=== PATIENT | male | born 1965 | race Caucasian/White ===

== ENCOUNTER 2017-04-09 11:19 | Emergency (ER) | payer MEDICAID ==
[~2017-04-09] VITALS: Ht 170.2 cm; Wt 68.9 kg
[2017-04-09] MEDS ORDERED: LIDOCAINE HCL 1% 20 ML VIAL TP ONE (11:30)
[2017-04-09] MEDS ORDERED: NEOMY/BACITRA/POLYMYXIN B OINT UD PACKET TP ONE ×2 (11:30→11:46)
[2017-04-09] MEDS ORDERED: TDAP DIPH,PERTUSS,TET VAC/PF 0.5 ML DISP.SYRIN IM ONE ×2 (11:30→11:47)
[2017-04-09] MEDS ORDERED: HYDROMORPHONE 1 MG/1 ML DISP.SYRIN IM ONE (11:30)
[2017-04-09] MEDS ORDERED: ONDANSETRON ODT 4 MG TAB.RAPDIS SL ONE (11:30)
[2017-04-09] MEDS ORDERED: LIDOCAINE HCL 1% 20 ML VIAL ONE (11:46)
[2017-04-09] MEDS ORDERED: HYDROMORPHONE 2 MG/1 ML DISP.SYRIN ONE (11:47)
[2017-04-09] MEDS ORDERED: ONDANSETRON ODT 4 MG TAB.RAPDIS ONE (11:48)
[2017-04-09] MEDS ORDERED: CEFAZOLIN 2 G in IV DEXTROSE 5% 100 ML IV ONE (12:00)
[2017-04-09] MEDS ORDERED: CEFAZOLIN 1 G VIAL ONE (12:05)
--- NOTE | 2017-04-09 12:46 | NUR ---
Patient discharged to home in stable conditon. Written and verbal after care instructions given, translated by [email or web address] Patient verbalizes understanding of instructions.pt walks in steady gait.
[2017-04-09 13:05] VITALS: BP 138/88
== END 2017-04-09 12:49 | disposition home or self-care (01) ==
LOC: EDBD → EDSEX → ER 11:19
DX: S92.322A Displaced fracture of second metatarsal bone, left foot, initial encounter for closed fracture (principal); W31.89XA Contact with other specified machinery, initial encounter; Y93.H2 Activity, gardening and landscaping; Y92.89 Other specified places as the place of occurrence of the external cause; Y99.8 Other external cause status
CPT/HCPCS: 12005; 29125; 73130; 90471; 90715; 96365; 96372; 99284; A4217; A4663; J0690; J1170; J3490; Q0162

== ENCOUNTER 2017-04-11 12:07 | Emergency (ER) | payer MEDICAID ==
[~2017-04-11] VITALS: Ht 170.2 cm; Wt 68.0 kg
--- NOTE | 2017-04-11 12:31 | NUR ---
Patient discharged to home in stable conditon. Written and verbal after care instructions given. Patient verbalizes understanding of instructions.
== END 2017-04-11 12:32 | disposition home or self-care (01) ==
LOC: ER 12:07
DX: S61.412D Laceration without foreign body of left hand, subsequent encounter (principal); X58.XXXD Exposure to other specified factors, subsequent encounter
CPT/HCPCS: 99283; A4663

== ENCOUNTER 2017-04-22 11:51 | Emergency (ER) | payer MEDICAID ==
[~2017-04-22] VITALS: Ht 162.6 cm; Wt 68.0 kg
--- NOTE | 2017-04-22 12:26 | NUR ---
Patient discharged to home in stable conditon. Written and verbal after care instructions given to patient with healthcare interpreter #[id number]. Patient verbalizes understanding of instructions.
== END 2017-04-22 12:31 | disposition home or self-care (01) ==
LOC: ER 11:51
DX: Z48.02 Encounter for removal of sutures (principal)
CPT/HCPCS: 99282; A4663